=== PATIENT | male | born 1950 | race Caucasian/White ===

== ENCOUNTER 2020-04-30 10:36 | Outpatient (CLI) | payer MEDICARE, SELFPAY ==
--- NOTE | ~2020-04-30 | XR_ITS ---
XR lumbar spine 2-3V DATE: 04/30/2020 10:57 INDICATION: Right low back pain, sciatica TECHNIQUE: AP, lateral, coned lateral lumbosacral views COMPARISON: 05/16/2012 lumbar spine FINDINGS: Moderate osteopenia No fracture or bone destruction. The T11-L5 pedicles are intact. There is moderate degenerative disc disease at L1-2, L2-3, L3-4, mild degenerative disc disease at L4 -5 and L5-S1. There is minimal retrolisthesis at L2-3. There is grade 1 anterolisthesis due to degenerative change at the apophyseal joints at L4-5. Cirrhotic joints are intact. Devyn right inguinal herniorrhaphy. IMPRESSION: Multilevel degenerative disc disease, greatest at L2-3 and L3-4, with associated minimal retrolisthesis at L2-3 Grade 1 anterolisthesis at L4-5 due to degenerative change at the apophyseal joints Reviewed, dictated and finalized at location A. IMPRESSION: Multilevel degenerative disc disease, greatest at L2-3 and L3-4, wi th associated minimal retrolisthesis at L2-3 Grade 1 anterolisthesis at L4-5 due to degenerative change at the apophyseal [place] ints
== END 2020-04-30 10:37 | disposition home or self-care (01) ==
PROVIDERS: PCP Family Medicine; Visit Provider Physician Assistant
DX: G89.29 Other chronic pain (principal); M54.41 Lumbago with sciatica, right side; M54.42 Lumbago with sciatica, left side; M51.36 Other intervertebral disc degeneration, lumbar region
CPT/HCPCS: 72100

== ENCOUNTER → 2020-12-14 02:12 | Outpatient (CLI) | payer MEDICARE, SELFPAY ==
[2020-12-14 19:55] LABS: SARS-CoV-2 RNA PCR Negative
== END ==
PROVIDERS: PCP Family Medicine; Visit Provider Internal Medicine Gastroenterology
DX: Z01.812 Encounter for preprocedural laboratory examination (principal); Z20.822 Contact with and (suspected) exposure to COVID-19
CPT/HCPCS: C9803; U0003; U0005

== ENCOUNTER 2020-12-18 02:44 | Day surgery (SDC) | payer MEDICARE, SELFPAY ==
[2020-12-06 13:05] VITALS: BMI 28.3
[2020-12-18 09:20] VITALS: BP 147/89; PULSE 68; RESP 18; TEMP 36.2; O2SAT 98; BMI 27.2
[2020-12-18] MEDS: LACTATED RINGERS 1,000 ML 150 ML IV CONT (09:39)
--- NOTE | 2020-12-18 09:44 | WPDANESEPPF ---
Anes - Initial Pre Proc Eval Procedure: Operation Date: 12/18/20 10:15 Proposed Procedures p Screening Colonoscopy - Jerad Bonilla MD Date/Time: 12/18/20 09:44 Surgeon: Jerad Bonilla MD Pre Op Diagnosis: neoplasm screening Patient Data Age: 70 Gender: M Height: 5 ft 7 in Weight: 79 kg Last Vital Signs Temp 97.1 F L 12/18/20 09:20 Pulse 68 12/18/20 09:20 Resp 18 12/18/20 09:20 BP 147/89 H 12/18/20 09:20 Pulse Ox 98 12/18/20 09:20 Allergies Allergy/AdvReac Type Severity Reaction Status Date / Time No Known Allergies Allergy Verified 12/18/20 09:19 Home Medications Medication Instructions Recorded Confirmed Type pantoprazole 40 mg PO DAILY PRN 12/06/20 12/18/20 History Patient hx anesthesia problems: none Family hx anesthesia problems: none [facility] Social History Social History Smoking status: Never smoker Alcohol intake: current Substance use: never Substance use type: does not use Living arrangements: with family Gender identity (if verbalized by the patient): Male Spiritual care concerns: No Anes - Eval Final PreProcedure Day of Procedure 12/18/20 09:44 Patient weight: overweight Heart: regular rate and rhythm Lungs: clear to auscultation Airway: Mallampati scale class II Neurological: alert and oriented Last oral intake: >/= 8 hours ASA classification: II Emergent: no Anesthetic plan: proceed Anesthesia type and monitoring: general GIVS and standard monitoring Informed Consent: The patient's anesthetic plan and its attendant risks and benefits were discussed with the patient/family/POA. Questions were solicited and answers provided to the satisfaction of the patient/family/POA.
--- NOTE | 2020-12-18 09:50 | P.CONGI_ITS ---
Assessment and Plan Assessment and plan (1) Encounter for screening colonoscopy: Code(s): Z12.11 - Encounter for screening for malignant neoplasm of colon Status: Acute Assessment and Plan: neoplasia screening colonoscopy advised because of patient's age. Further recommendations will be given after endoscopy. Patient has no family history of colon cancer or polyps. (2) Rectal bleeding: Code(s): K62.5 - Hemorrhage of anus and rectum Status: Acute Assessment and Plan: Rectal bleeding appears to been from hemorrhoids. Plan to assess with colonoscopy. High-fiber diet advised. Patient may benefit from hemorrhoid banding this will be reassessed at the time of endoscopy. GI Consult Note Consult date/time: 12/18/20 09:50 HPI: Matthew Mcdaniel is a 70 year old male presents for screening colonoscopy. His current weight appetite bowel movements are normal. He desires neoplasia screening. Patient reports 1 week episode of rather significant bright red blood per rectum. He is known to have hemorrhoids. He states during this interval of bleeding a rather large hard not developed at the perianal area that has subsequently decreased in size. Continues to have a hard knot this area. Patient denies any weight loss. His family history is noncontributory. His bowel habits typically a been regular prior to this. Past medical history is significant for GE reflux disease. He has a history of esophageal stricture requiring dilatation in the past. Symptoms appear controlled on pantoprazole at the present time period anti-reflux measures should continue long-term. Review of Systems Review of Systems: All systems reviewed & are unremarkable except as noted in HPI and below [facility] Social History Social History Smoking status: Never smoker Alcohol intake: current Substance use: never Substance use type: does not use Living arrangements: with family Gender identity (if verbalized by the patient): Male Spiritual care concerns: No Meds Home Medications and Allergies Home Medications Medication Instructions Recorded Confirmed Type pantoprazole 40 mg PO DAILY PRN 12/06/20 12/18/20 History Allergies Allergy/AdvReac Type Severity Reaction Status Date / Time No Known Allergies Allergy Verified 12/18/20 09:19 Vital Signs Vital Signs - 24 hr 12/18/20 09:20 Temperature 97.1 F L Pulse Rate 68 Respiratory Rate 18 Blood Pressure 147/89 H Pulse Oximetry 98 Exam Narrative: Exam Narrative: Physical exam reveals patient be alert. Vital signs stable. HEENT exam unremarkable. Patient is anicteric. Lungs are clear to auscultation and percussion. Heart is without murmur or extra sounds. Abdominal exam bowel sounds are present soft nontender with no organomegaly. Digital external rectal exam reveals no bleeding at the present time period
[2020-12-18 10:30] VITALS: BP 102/68; PULSE 63; RESP 24; O2SAT 96
[2020-12-18 10:40] VITALS: BP 122/88; PULSE 59; RESP 22; O2SAT 95
[2020-12-18 10:50] VITALS: BP 135/85; PULSE 59; RESP 16; O2SAT 97
== END 2020-12-18 11:12 | disposition home or self-care (01) ==
PROVIDERS: PCP Internal Medicine; Visit Provider Internal Medicine Gastroenterology
PROC: 0DJD8ZZ Inspection of Lower Intestinal Tract, Via Natural or Artificial Opening Endoscopic (ICD-10-PCS; CPT 45378; principal; 2020-12-18 10:15)
DX: Z12.11 Encounter for screening for malignant neoplasm of colon (principal); K21.9 Gastro-esophageal reflux disease without esophagitis; K22.2 Esophageal obstruction; K64.8 Other hemorrhoids; K57.30 Diverticulosis of large intestine without perforation or abscess without bleeding
CPT/HCPCS: 45385; J2704; J7120